=== PATIENT | female | born 1960 | race Hispanic/Latino ===

== ENCOUNTER → 2020-01-06 11:09 | Outpatient (CLI) | payer BC, SELFPAY ==
--- NOTE | 2020-01-06 | DI.MG.S_ITS ---
BILATERAL DIGITAL SCREENING MAMMOGRAM 3D/2D WITH CAD: 01/06/2020 CLINICAL: Routine screening. Comparison is made to exams dated: 09/22/2015 mammogram, 08/12/2014 mammogram, and 12/18/2006 mammogram - [facility]. The tissue of both breasts is heterogeneously dense. This may lower the sensitivity of mammography. Current study was also evaluated with a Computer Aided Detection (CAD) system. No significant masses, calcifications, or other findings are seen in either breast. There has been no significant interval change. IMPRESSION: NEGATIVE There is no mammographic evidence of malignancy. A 1 year screening mammogram is recommended. This exam was interpreted at Station ID: [id number]. NOTE: For mammograms, a report in lay terms will be sent to the patient. Approximately 15% of breast malignancies will not be visualized mammographically. In the management of a palpable breast mass, a negative mammogram must not discourage biopsy of a clinically suspicious lesion. Electronically Signed By: Alvarado shabazz/gautam:01/06/2020 11:47:58 letter sent: Normal Exam ACR BI-RADS Category 1: Negative 3341F
== END ==
PROVIDERS: Family Provider Family Medicine; PCP Family Medicine; Referring Provider Family Medicine; Visit Provider Family Medicine
DX: Z12.31 Encounter for screening mammogram for malignant neoplasm of breast (principal)
CPT/HCPCS: 77063; 77067

== ENCOUNTER 2020-09-03 08:09 | Day surgery (SDC) | payer BC, SELFPAY ==
[2020-09-03 08:34] VITALS: BP 122/85; PULSE 92; RESP 16; TEMP 37.2; O2SAT 100; BMI 21.2
[2020-09-03] MEDS: SODIUM CHLORIDE 0.9% 1,000 ML 200 ML IV (08:34)
--- NOTE | 2020-09-03 09:11 | PM.HP.1 ---
History of Present Illness History of Present Illness Date Patient Seen: 09/03/20 Time Patient Seen: 09:11 Chief complaint: SCREENING COLONOSCOPY Narrative: This is a 59-year-old woman reports never having had a colonoscopy before. She denies any symptoms of melena, hematochezia, unexplained abdominal pain, or unexplained weight loss. She denies any known family history of colon cancer or colon polyps. Have no outside primary care provider notes, and so the entire history was gleaned from the patient herself. ROS: Denies dysuria, chest pain, shortness of breath, joint pain, abdominal pain. Thirteen system review is otherwise negative other than as mentioned below and in HPI. Past medical history: Reports only seasonal allergies Home medication: Reports Claritin, Melissa, Alertec, occasional Tylenol or ibuprofen, vitamin Past surgical history: Appendectomy, x2 Family medical history: Denies any family history of colon cancer or colon polyps, mother has hypertension Social history: Never smoker, occasional alcohol, denies any other substance use Allergies: Reports sensitivity to all narcotics PE: GENERAL: Well groomed and cooperative. Appears stated age. Answers questions promptly and appropriately. Vital signs noted. HENT: Normocephalic, atraumatic. Hearing intact. EYES: Conjunctiva pink, sclera white, no periorbital swelling. CARDIOVASCULAR: Regular rate. No pedal edema. RESPIRATORY: Non-tachypneic, breathing comfortably on room air. GASTROINTESTINAL: Abdomen soft and non-distended; well-healed scar, nontender GENITALURINARY: No flank tenderness. MUSCULOSKELETAL: Equal tone and mass bilaterally. SKIN: Warm, dry, soft, appropriate color for ethnicity. No other lesions, rashes, or wounds. NEURO: Alert and Oriented X 3. No gross sensory deficits, or cognitive issues. PSYCH: Appropriate affect and mood. Patient History Medical History Hypercholesteremia (Acute) Surgical History Status post surgery (10/26/14) Family & Social History Social History: household members spouse Tobacco & Substance use: Smoking Status Never smoker alcohol intake current alcohol intake frequency a few times a week Substance Use Type does not use Meds Home Medications and Allergies Home Medications Medication Instructions Recorded Confirmed Type loratadine [Claritin] 10 mg PO DAILY 09/03/20 09/03/20 History Allergies Allergy/AdvReac Type Severity Reaction Status Date / Time codeine [CODEINE] Allergy Unknown feels like Verified 09/03/20 08:25 an elephant on the chest oxycodone [OXYCODONE] Allergy Unknown feels like Verified 09/03/20 08:25 an elephant on the chest morphine [MORPHINE] AdvReac Unknown feels like Verified 09/03/20 08:25 an elephant on the chest Exam Vital Signs (past 8 hours): - 09/03/20 08:34 Temperature 99 F Pulse Rate 92 H Respiratory Rate 16 Blood Pressure 122/85 Pulse Oximetry 100 Oxygen Delivery Method Room Air Assessment & Plan Assessment & Plan narrative: Risks and benefits of screening colonoscopy and possible polypectomy were discussed with the patient including risk of bleeding, perforation, need for additional procedures, risks of anesthesia. The patient desires to proceed with the colonoscopy procedure. COVID-19 COVID-19 status: Negative Result date/Date tested (Pos, Neg/Pending): 09/01/20 Time Spent With Patient Time with patient: 15-24 minutes Quality VTE Deep Vein Thrombosis/Pulmonary Embolism Present on Admission: No
--- NOTE | 2020-09-03 09:16 | PM.OP.ENDO ---
Operative Date/Time/Diagnoses Date of procedure: 09/03/20 Time of procedure: 09:16 Pre-op diagnosis: Average risk for colon cancer Post-op diagnosis: other (Normal colonic mucosa, very tortuous colon) Procedure & Clinicians Study performed: Colonoscopy Procedural sedation performed by the endoscopist Same procedure as scheduled: Yes Indications: Average risk for colon cancer, never had a screening colonoscopy Surgeon: Laney Orozco Procedure Notes SCOAP/Timeout: Performed Procedure in detail: The patient was brought to the room and placed in left lateral decubitus position with all bony prominences padded. A time-out was performed and then the patient was given procedural sedation starting with 2 mg of Versed and 100 mcg of fentanyl. A total of 6 mg of Versed and 150 micro g of fentanyl were given for the entire procedure Vitals were monitored throughout the procedure and remained stable. Once adequately sedated, the procedure was begun. A rectal exam was performed revealing no abnormalities. The colonoscope was then introduced to the rectum and advanced to the cecum in the usual fashion. Colon was very tortuous, and required multiple maneuvers in order to reach the cecum safely. The cecum was identified by the appendiceal orifice, the mucosal tri-fold, and the ileocecal valve. The scope was then retracted while rotating side to side and examining each mucosal fold. At the conclusion of the procedure retroflexion was performed and small grade 1-2 internal hemorrhoids without stigmata of bleeding were seen. The scope was then withdrawn from the rectum the procedure was concluded. The patient tolerated the procedure well and was transferred to the PACU in stable condition. Scope withdrawal time: 8 Sedation minutes: 21 Findings: other findings (Tortuous colon) Specimen(s): none sent Complications: none Impression: Normal colonic mucosa, moderately tortuous colon Post-procedure Recommendations: Colonscopy in 10 years Follow up: as needed Disposition: PACU
[2020-09-03] MEDS: MIDAZOLAM 5 MG/5 ML VIAL IV (09:18)
[2020-09-03] MEDS: fentaNYL 250 MCG/5 ML INJ IV (09:18)
[2020-09-03 09:44] VITALS: BP 104/64; PULSE 68; RESP 16; TEMP 36.2; O2SAT 99
[2020-09-03 09:49] VITALS: BP 94/62; PULSE 72; RESP 16; O2SAT 100
[2020-09-03 09:55] VITALS: BP 100/67; PULSE 64; RESP 22; O2SAT 100
[2020-09-03 09:58] VITALS: PULSE 70; RESP 16; TEMP 36.3; O2SAT 100
[2020-09-03 09:59] VITALS: BP 106/72; PULSE 70; RESP 18; O2SAT 10
== END 2020-09-03 10:57 | disposition home or self-care (01) ==
PROVIDERS: Family Provider Family Medicine; PCP Family Medicine; Referring Provider Family Medicine; Visit Provider Surgery
PROC: 0DJD8ZZ Inspection of Lower Intestinal Tract, Via Natural or Artificial Opening Endoscopic (ICD-10-PCS; CPT 45378; principal; 2020-09-03 09:15)
DX: Z12.11 Encounter for screening for malignant neoplasm of colon (principal); K64.0 First degree hemorrhoids
CPT/HCPCS: 45378; 99152; J2250; J3010

== ENCOUNTER → 2021-02-24 10:40 | Outpatient (CLI) | payer BC, SELFPAY ==
[2021-02-24 19:02] LABS: Cholesterol 195 mg/dL (140-199); HDL Cholesterol 54 mg/dL (40-60); LDL Cholesterol Calculated 126 mg/dL (<100); Triglycerides 74 mg/dL (35-150)
[2021-02-24 19:52] LABS: Hep C Virus Ab w/Reflex Quant NEGATIVE s/c (NEGATIVE)
== END ==
PROVIDERS: Family Provider Family Medicine; PCP Physician Assistant; Visit Provider Physician Assistant
DX: E78.00 Pure hypercholesterolemia, unspecified (principal); Z11.59 Encounter for screening for other viral diseases
CPT/HCPCS: 80061; 86803

== ENCOUNTER → 2022-02-16 09:50 | Outpatient (CLI) | payer BC, SELFPAY ==
--- NOTE | 2022-02-16 09:52 | DI.MG.S_ITS ---
BILATERAL DIGITAL SCREENING MAMMOGRAM 3D/2D WITH CAD: 02/16/2022 CLINICAL: Routine screening. Comparison is made to exams dated: 01/06/2020 mammogram, 09/22/2015 mammogram, 12/18/2006 mammogram, and 08/12/2014 mammogram - [facility]. The tissue of both breasts is heterogeneously dense. This may lower the sensitivity of mammography. Current study was also evaluated with a Computer Aided Detection (CAD) system. No significant masses, calcifications, or other findings are seen in either breast. There has been no significant interval change. IMPRESSION: NEGATIVE There is no mammographic evidence of malignancy. A 1 year screening mammogram is recommended. This exam was interpreted at Station ID: [id number]. NOTE: For mammograms, a report in lay terms will be sent to the patient. Approximately 15% of breast malignancies will not be visualized mammographically. In the management of a palpable breast mass, a negative mammogram must not discourage biopsy of a clinically suspicious lesion. Electronically Signed By: Kunal longoria/gautam:02/16/2022 17:41:16 letter sent: Normal Exam ACR BI-RADS Category 1: Negative 3341F
== END ==
PROVIDERS: Family Provider Family Medicine; PCP Physician Assistant; Referring Provider Physician Assistant; Visit Provider Physician Assistant
DX: Z12.31 Encounter for screening mammogram for malignant neoplasm of breast (principal)
CPT/HCPCS: 77063; 77067

== ENCOUNTER → 2023-02-22 12:12 | Outpatient (CLI) | payer BC, SELFPAY ==
--- NOTE | 2023-02-22 | DI.MG.S_ITS ---
BILATERAL DIGITAL SCREENING MAMMOGRAM 3D/2D WITH CAD: 02/22/2023 CLINICAL: Routine screening. Comparison is made to exams dated: 02/16/2022 mammogram, 01/06/2020 mammogram, and 09/22/2015 mammogram - [facility]. Both breasts are heterogeneously dense, which may obscure small masses (category c / 51-75% glandular tissue). Current study was also evaluated with a Computer Aided Detection (CAD) system. No significant masses, calcifications, or other findings are seen in either breast. There has been no significant interval change. IMPRESSION: NEGATIVE There is no mammographic evidence of malignancy. A 1 year screening mammogram is recommended. Based on the Tyrer Cuzick model (a risk assessment model) the patient's lifetime risk is 13.3% and her 10 year risk is 5.4%. According to the ACR, ACS, and NCCN guidelines, an annual breast MRI exam along with mammogram is recommended if the patient's lifetime risk is 20% or greater. This exam was interpreted at Station ID: [id number]. NOTE: For mammograms, a report in lay terms will be sent to the patient. Approximately 15% of breast malignancies will not be visualized mammographically. In the management of a palpable breast mass, a negative mammogram must not discourage biopsy of a clinically suspicious lesion. Electronically Signed By: Niko del cid/gautam:02/22/2023 14:54:59 letter sent: Normal Exam ACR BI-RADS Category 1: Negative 3341F
== END ==
PROVIDERS: Family Provider Family Medicine; PCP Physician Assistant; Referring Provider Physician Assistant; Visit Provider Physician Assistant
DX: Z12.31 Encounter for screening mammogram for malignant neoplasm of breast (principal)
CPT/HCPCS: 77063; 77067

== ENCOUNTER → 2023-09-24 08:48 | Outpatient (CLI) | payer BC, SELFPAY ==
[2023-09-24 19:21] LABS: Alanine Aminotransferase 41 IU/L (<35); Albumin 4.6 g/dL (3.5-5.0); Albumin Globulin Ratio 1.4 (1.0-2.8); Alkaline Phosphatase 86 U/L (38-126); Aspartate Aminotransferase 38 IU/L (14-36); BUN Creatinine Ratio 30.9 (6-22); Bilirubin Total 0.8 mg/dL (0.2-1.3); Blood Urea Nitrogen 21 mg/dL (7-17); Calcium 9.5 mg/dL (8.4-10.2); Carbon Dioxide 26 mmol/L (22-32); Chloride 104 mmol/L (98-107); Cholesterol 267 mg/dL (140-199); Estimated Glomerular Filt Rate > 60 mL/min (>60); Globulin 3.2 g/dL (1.7-4.1); Glucose 115 mg/dL (80-110); HDL Cholesterol 55 mg/dL (40-60); HEMOLYSIS < 15 (0-50); LDL Cholesterol Calculated 185 mg/dL (<100); Potassium 4.2 mmol/L (3.4-5.1); Sodium 139 mmol/L (137-145); Total Protein 7.8 g/dL (6.3-8.2); Triglycerides 137 mg/dL (35-150)
[2023-09-24 19:39] LABS: Add Manual Diff / Slide Review NO; Basophils Absolute Auto 0 /uL (0-100); Basophils Percent Auto 0.9 % (0-2); Eosinophils Absolute Auto 100 /uL (0-450); Eosinophils Percent Auto 3.6 % (2-4); Hemoglobin 13.7 g/dL (12.0-16.0); Lymphocytes Absolute Auto 1300 /uL (1100-4500); Lymphocytes Percent Auto 33.3 % (25-40); Mean Corpuscular HGB Conc 34.4 % (30-36); Mean Corpuscular Hemoglobin 29.5 PG (26-34); Mean Corpuscular Volume 85.9 fL (80-100); Monocytes Absolute Auto 300 /uL (0-900); Neutrophils Absolute Auto 2200 /uL (1500-7000); Neutrophils Percent Auto 54.2 % (50-75); Platelet Count 270 X10^3/uL (150-400); Red Blood Cell Count 4.65 X10^6/uL (4.0-5.2); Red Cell Distribution Width 13.1 % (11.6-14.8)
[2023-09-24 19:48] LABS: Thyroid Stimulating Hormone 2.64 uIU/mL (0.47-4.68)
[2023-09-25 07:50] LABS: Hemoglobin A1C% w Est Avg Glu 5.8 % (4.0-6.0)
== END ==
PROVIDERS: Family Provider Family Medicine; PCP Family Medicine; Visit Provider Family Medicine
DX: Z00.00 Encounter for general adult medical examination without abnormal findings (principal); Z12.9 Encounter for screening for malignant neoplasm, site unspecified; Z23 Encounter for immunization; Z13.6 Encounter for screening for cardiovascular disorders; Z13.1 Encounter for screening for diabetes mellitus; E78.00 Pure hypercholesterolemia, unspecified; R73.01 Impaired fasting glucose
CPT/HCPCS: 80053; 80061; 83036; 84443; 85025

== ENCOUNTER → 2024-01-08 09:24 | Outpatient (CLI) | payer BC, SELFPAY ==
[2024-01-08 19:07] LABS: Alanine Aminotransferase 27 IU/L (<35); Albumin 4.4 g/dL (3.5-5.0); Albumin Globulin Ratio 1.4 (1.0-2.8); Alkaline Phosphatase 79 U/L (38-126); Aspartate Aminotransferase 30 IU/L (14-36); Bilirubin Total 0.8 mg/dL (0.2-1.3); Bilirubin Unconjugated 0.6 mg/dL (0.0-1.1); Globulin 3.1 g/dL (1.7-4.1); HEMOLYSIS < 15 (0-50); Total Protein 7.5 g/dL (6.3-8.2)
[2024-01-08 19:17] LABS: HEMOLYSIS < 15 (0-50); Iron 90 ug/dL (37-170)
[2024-01-08 19:18] LABS: LDL Cholesterol Direct 148 mg/dL (<100)
[2024-01-08 19:27] LABS: Percent Iron Saturation 30 % (15-50); Total Iron Binding Capacity 296 ug/dL (265-497); Transferrin 260 mg/dL (206-381)
[2024-01-08 19:32] LABS: Hemoglobin A1C% w Est Avg Glu 5.5 % (4.0-6.0)
[2024-01-08 19:43] LABS: Ferritin 68 ng/mL (11-264)
[2024-01-08 19:47] LABS: TSH w/ Reflex to FT4 2.06 uIU/mL (0.47-4.68)
[2024-01-08 19:52] LABS: Hepatitis B Surface Antigen NEGATIVE s/c (NEGATIVE)
[2024-01-08 20:04] LABS: Hep C Virus Ab w/Reflex Quant NEGATIVE s/c (NEGATIVE)
[2024-01-10 08:08] LABS: Hepatitis B Core Antibody Negative (Negative)
[2024-01-11 07:36] LABS: Hepatitis B Surf Ab Qualitativ Reactive (.)
[2024-01-13 16:16] LABS: ANA Screen, IFA Negative (.)
== END ==
PROVIDERS: Family Provider Family Medicine; PCP Family Medicine; Visit Provider Family Medicine
DX: R79.89 Other specified abnormal findings of blood chemistry (principal); R73.01 Impaired fasting glucose; R74.01 Elevation of levels of liver transaminase levels; G62.9 Polyneuropathy, unspecified
CPT/HCPCS: 80076; 82728; 83036; 83540; 83550; 83721; 84443; 86038; 86704; 86706; 86803; 87340

== ENCOUNTER → 2024-02-25 10:39 | Outpatient (CLI) | payer BC, SELFPAY ==
--- NOTE | 2024-02-25 10:40 | DI.MG.S_ITS ---
BILATERAL DIGITAL SCREENING MAMMOGRAM 3D/2D WITH CAD: 02/25/2024 CLINICAL: Routine screening. Comparison is made to exams dated: 02/22/2023 mammogram, 02/16/2022 mammogram, and 01/06/2020 mammogram - [facility]. Both breasts are heterogeneously dense, which may obscure small masses (category c / 51-75% glandular tissue). Current study was also evaluated with a Computer Aided Detection (CAD) system. No significant masses, calcifications, or other findings are seen in either breast. There has been no significant interval change. IMPRESSION: NEGATIVE There is no mammographic evidence of malignancy. A 1 year screening mammogram is recommended. Based on the Tyrer Cuzick model (a risk assessment model) the patient's lifetime risk is 13.0% and her 10 year risk is 5.5%. According to the ACR, ACS, and NCCN guidelines, an annual breast MRI exam along with mammogram is recommended if the patient's lifetime risk is 20% or greater. This exam was interpreted at Station ID: [id number]. NOTE: For mammograms, a report in lay terms will be sent to the patient. Approximately 15% of breast malignancies will not be visualized mammographically. In the management of a palpable breast mass, a negative mammogram must not discourage biopsy of a clinically suspicious lesion. Electronically Signed By: Rosalind hathaway/gautam:02/25/2024 13:42:00 letter sent: Normal Exam ACR BI-RADS Category 1: Negative 3341F
== END ==
LOC: MAMMO 10:39
PROVIDERS: Family Provider Family Medicine; PCP Family Medicine; Referring Provider Family Medicine; Visit Provider Family Medicine
DX: Z12.31 Encounter for screening mammogram for malignant neoplasm of breast (principal); R92.333 Mammographic heterogeneous density, bilateral breasts
CPT/HCPCS: 77063; 77067

== ENCOUNTER → 2025-01-02 10:35 | Outpatient (CLI) | payer BC, SELFPAY ==
[2025-01-02 18:08] LABS: Add Manual Diff / Slide Review NO; Basophils Absolute Auto 0 /uL (0-100); Basophils Percent Auto 0.9 % (0-2); Eosinophils Absolute Auto 200 /uL (0-450); Eosinophils Percent Auto 5.9 % (2-4); Hematocrit 41.5 % (36-46); Hemoglobin 14.3 g/dL (12.0-16.0); Lymphocytes Absolute Auto 1400 /uL (1100-4500); Lymphocytes Percent Auto 33.8 % (25-40); Mean Corpuscular HGB Conc 34.5 % (30-36); Mean Corpuscular Hemoglobin 29.5 PG (26-34); Mean Corpuscular Volume 85.5 fL (80-100); Monocytes Absolute Auto 300 /uL (0-900); Monocytes Percent Auto 6.4 % (3-14); Neutrophils Absolute Auto 2200 /uL (1500-7000); Platelet Count 258 X10^3/uL (150-400); Red Blood Cell Count 4.85 X10^6/uL (4.0-5.2); Red Cell Distribution Width 13.8 % (11.6-14.8); White Blood Cell Count 4.2 X10^3/uL (4.5-11.0)
[2025-01-02 18:09] LABS: Hemoglobin A1C% w Est Avg Glu 5.3 % (4.0-6.0)
[2025-01-02 18:12] LABS: Alanine Aminotransferase 33 IU/L (<35); Albumin 4.8 g/dL (3.5-5.0); Albumin Globulin Ratio 1.5 (1.0-2.8); Alkaline Phosphatase 94 U/L (38-126); Aspartate Aminotransferase 39 IU/L (14-36); Bilirubin Total 0.9 mg/dL (0.2-1.3); Blood Urea Nitrogen 20 mg/dL (7-17); Calcium 9.7 mg/dL (8.4-10.2); Carbon Dioxide 27 mmol/L (22-32); Chloride 103 mmol/L (98-107); Cholesterol 308 mg/dL (140-199); Estimated Glomerular Filt Rate > 60 mL/min (>60); Globulin 3.2 g/dL (1.7-4.1); Glucose 110 mg/dL (80-110); HDL Cholesterol 62 mg/dL (40-60); HEMOLYSIS < 15 (0-50); LDL Cholesterol Calculated 205 mg/dL (<100); Potassium 4.1 mmol/L (3.4-5.1); Sodium 139 mmol/L (137-145); Triglycerides 203 mg/dL (35-150)
[2025-01-02 18:42] LABS: Thyroid Stimulating Hormone 3.02 uIU/mL (0.47-4.68)
== END ==
PROVIDERS: Family Provider Family Medicine; PCP Family Medicine; Visit Provider Family Medicine
DX: E78.2 Mixed hyperlipidemia (principal); R73.01 Impaired fasting glucose
CPT/HCPCS: 80053; 80061; 83036; 84443; 85025

== ENCOUNTER → 2025-04-15 09:53 | Outpatient (CLI) | payer BC, SELFPAY ==
--- NOTE | 2025-04-15 09:54 | DI.MG.S_ITS ---
MM screening mammo BI: 04/15/2025. BI-RADS: 1 CLINICAL: 64-year old female for bilateral screening mammogram. Tyrer-Cuzick lifetime risk of 6.7%. No personal or first-degree family history of breast cancer. PRIOR EXAMS 02/25/2024, 02/22/2023, 02/16/2022, 01/06/2020. MAMMOGRAPHY TECHNIQUE: 2D and 3D (tomosynthesis) digital mammographic views obtained, with additional images as needed for full coverage. Current study was also evaluated with a Computer Aided Detection (CAD) system. DENSITY C. The breasts are heterogeneously dense, which may obscure small masses. MAMMOGRAPHY FINDINGS Bilateral: No suspicious mass, asymmetry, microcalcification, or other abnormality seen. IMPRESSION: * No evidence of malignancy. RECOMMENDATIONS Bilateral * Annual screening mammography. OVERALL ASSESSMENT CATEGORY BI-RADS-1: Negative. The [employer] recommends annual screening mammography beginning at age 40 for women with average risk of breast cancer. ELECTRONICALLY SIGNED: Kunal Garcia M.D. on 04/15/2025 at 04:31:47 PM PT Interpreting Station ID: [id number]
== END ==
LOC: MAMMO 09:54
PROVIDERS: Family Provider Family Medicine; PCP Family Medicine; Referring Provider Family Medicine; Visit Provider Family Medicine
DX: Z12.31 Encounter for screening mammogram for malignant neoplasm of breast (principal); R92.333 Mammographic heterogeneous density, bilateral breasts
CPT/HCPCS: 77063; 77067

== ENCOUNTER → 2025-04-22 09:14 | Outpatient (CLI) | payer BC, SELFPAY ==
[2025-04-22 21:20] LABS: Cholesterol 267 mg/dL (140-199); HDL Cholesterol 63 mg/dL (40-60); Triglycerides 128 mg/dL (35-150)
== END ==
PROVIDERS: Family Provider Family Medicine; PCP Family Medicine; Visit Provider Family Medicine
DX: E78.2 Mixed hyperlipidemia (principal); R03.0 Elevated blood-pressure reading, without diagnosis of hypertension; R73.01 Impaired fasting glucose; R74.01 Elevation of levels of liver transaminase levels
CPT/HCPCS: 80061

== ENCOUNTER → 2025-09-07 11:39 | Outpatient (CLI) | payer BC, SELFPAY ==
--- NOTE | 2025-09-07 11:41 | DI.US.S_ITS ---
PROCEDURE: US EXTREMITY NONVASC LOWER RT INDICATIONS: right upper leg mass for years - slowly growing- many yrs TECHNIQUE: Real-time scanning was performed of the right anterior medial proximal thigh , with image documentation. COMPARISON: None. FINDINGS: 13.4 x 2.8 x 6.2 cm isoechoic subcutaneous soft tissue mass corresponding to the palpable abnormality. No internal vascularity. IMPRESSION: Possible soft tissue fatty lesion given the sonographic appearance. Recommend close clinical correlation and management. If the mass increases in size, consider pre and post-contrast femur MRI for further assessment. Dictated by: Shlomo Hodge [facility] Interpreted: Perfecto Mcdonough MD on 09/07/2025 at 14:41 Transcribed by: SARA on 09/07/2025 at 14:42 Approved by: Perfecto Mcdonough M.D. on 09/07/2025 at 15:02
== END ==
LOC: US 11:40
PROVIDERS: Family Provider Family Medicine; PCP Family Medicine; Referring Provider Family Medicine; Visit Provider Family Medicine
DX: M79.89 Other specified soft tissue disorders (principal)
CPT/HCPCS: 76882